=== PATIENT | female | born 1990 | race American Indian/Alaskan Native ===

== ENCOUNTER 2021-02-17 05:52 | Outpatient (CLI) | payer BC, MEDICAID ==
[2021-02-17] MEDS ORDERED: LACTATED RINGERS 1,000 ML IV SCH (06:30)
[2021-02-17 06:39] LABS: Mucus,Urine FEW /HPF; WBC,Urine < 1.0 /HPF (0.0-6.0)
[2021-02-17] MEDS ORDERED: TERBUTALINE 1 MG/1 ML INJ SUB-Q SCH (07:00)
[2021-02-17 07:04] LABS: Bilirubin,Urine NEG (Negative); Blood,Urine SM (Negative); Color,Urine Straw (Yellow); Protein,Urine <15 mg/dL mg/dL (Negative); Urobilinogen,Urine < 2.0 mg/dL (<2.0)
[2021-02-17 07:26] VITALS: BP 110/74
== END 2021-02-17 07:42 | disposition home or self-care (01) ==
LOC: TRG 05:52 → APU 05:58 → TRG 07:42
PROVIDERS: ATTEND Obstetrics & Gynecology
DX: Z34.93 Encounter for supervision of normal pregnancy, unspecified, third trimester (principal); Z3A.35 35 weeks gestation of pregnancy
CPT/HCPCS: 59025; 81001

== ENCOUNTER 2021-08-30 12:42 | Emergency (ER) | payer BC, MEDICAID ==
--- NOTE | 2021-08-30 13:11 | Emergency Department Report ---
ED General Adult HPI - General Chief complaint: Medical Clearance Stated complaint: MEDICATION ISSUES Time Seen by Provider: 08/30/21 13:00 Source: patient Mode of arrival: Ambulatory Limitations: No Limitations - History of Present Illness Initial comments: Patient presented secondary to left neck pain and tightness. She states that this started after she lifted cocaine powder off of her fingers. She admits that she got help yesterday and was trying to clean up her life. She was placed on Zoloft for her depression and help with cocaine use. Patient was cleaning up her "drug could be" when she noticed some residue. She wiped it off with her hand and then proceeded to lick her fingers. She was not shooting up. She has no chest pain. There is no shortness of breath there is no back pain. The tightness in the left neck is worse with movement of her head and neck. It does not radiate or migrate. She was very concerned that she "overdosed." There has been no recent illness. She has no SI or HI. - Related Data Previous Rx's Medication Instructions Recorded Last Taken Type hydrOXYzine HCL [Atarax] 25 mg PO Q6HR PRN #20 tablet 08/30/21 Unknown Rx Allergies Allergy/AdvReac Type Severity Reaction Status Date / Time doxycycline Allergy Hives Verified 02/17/21 06:19 ED Review of Systems ROS: Stated complaint: MEDICATION ISSUES Other details as noted in HPI Comment: All other systems reviewed and negative Constitutional: denies: fever Eyes: denies: eye pain ENT: denies: throat pain Respiratory: denies: cough Cardiovascular: denies: chest pain Endocrine: denies: unexplained weight loss Gastrointestinal: denies: abdominal pain Genitourinary: denies: dysuria Musculoskeletal: denies: back pain Skin: denies: rash Neurological: denies: headache Hematological/Lymphatic: denies: easy bruising ED Past Medical Hx - Past Medical History Previous Medical History?: No Hx Hypertension: No Hx Diabetes: No Hx Deep Vein Thrombosis: No Hx Renal Disease: No Hx Sickle Cell Disease: No Hx Seizures: No Hx Asthma: No Hx HIV: No - Surgical History Past Surgical History?: No - Family History Family history: no significant - Social History Smoking Status: Never Smoker - Medications Home Medications: Home Medications Medication Instructions Recorded Confirmed Last Taken Type hydrOXYzine HCL [Atarax] 25 mg PO Q6HR PRN #20 tablet 08/30/21 Unknown Rx ED Physical Exam - General Limitations: No Limitations, Other (Pulse ox is noted and normal) General appearance: alert, in no apparent distress - Head Head exam: Present: atraumatic, normocephalic - Eye Eye exam: Present: normal appearance, EOMI. Absent: scleral icterus - ENT ENT exam: Present: normal exam, normal orophraynx, normal external ear exam - Neck Neck exam: Present: normal inspection. Absent: meningismus - Respiratory Respiratory exam: Present: normal lung sounds bilaterally. Absent: respiratory distress - Cardiovascular Cardiovascular Exam: Present: regular rate, normal rhythm - GI/Abdominal GI/Abdominal exam: Present: soft. Absent: tenderness - Extremities Exam Extremities exam: Present: normal capillary refill. Absent: pedal edema - Back Exam Back exam: Absent: CVA tenderness (R), CVA tenderness (L) - Neurological Exam Neurological exam: Present: alert, oriented X3, CN II-XII intact, normal gait. Absent: motor sensory deficit - Psychiatric Psychiatric exam: Present: normal affect, normal mood - Skin Skin exam: Present: warm, dry ED Course Vital Signs 08/30/21 12:49 Temperature 98.8 F Pulse Rate 93 H Respiratory 16 Rate Blood Pressure 126/95 O2 Sat by Pulse 98 Oximetry - Reevaluation(s) Reevaluation #1: 08/30/21 13:09 Patient was discharged ED Medical Decision Making - Medical Decision Making Patient presents for concerns over cocaine consumption. She has no symptoms suggestive of ACS. Patient does not have evidence of hypertensive emergency. She is not suicidal or homicidal. She is complaining of some neck stiffness t hat is muscular in nature. I do not believe this represents coronary artery spasm. She does not appear to be septic or toxic. She has been using cocaine for a while and states that the amount of residue that she looked off of her fingers was less than what she would normally use at home. She was treated symptomatically and discharged. Critical Care Time: No Critical care attestation.: If time is entered above; I have spent that time in minutes in the direct care of this critically ill patient, excluding procedure time. ED Disposition Clinical Impression: Myalgia, Cocaine use Disposition: HOME / SELF CARE / HOMELESS Is pt being admited?: No Condition: Stable Instructions: Musculoskeletal Pain Additional Instructions: Apply ice to sore areas. Drink water. Continue your rehab. Prescriptions: hydrOXYzine HCL [Atarax] 25 mg PO Q6HR PRN #20 tablet PRN Reason: Spasms Referrals: PRIMARY CARE, [Referring] - 3-5 Days JUDE CARVALHO MD [Staff Physician] - 3-5 Days
[2021-08-30 13:59] VITALS: BP 114/80
== END 2021-08-30 13:58 | disposition home or self-care (01) ==
LOC: ED 12:42
DX: M79.18 Myalgia, other site (principal); F14.90 Cocaine use, unspecified, uncomplicated; Z88.1 Allergy status to other antibiotic agents
CPT/HCPCS: 99282